=== PATIENT | male | born 1945 | race Caucasian/White ===

== ENCOUNTER → 2021-07-07 | Outpatient (CLI) | payer MEDICARE ==
[2021-07-07 13:04] VITALS: BP 129/68; PULSE 63; RESP 18; TEMP 97.4
--- NOTE | 2021-07-07 13:24 | P.PAINCN ---
History of Present Illness - Reason for Consult Consult date: 07/07/21 - History of Present Illness This is a 76-year-old patient referred by Dr. Rossi with a chief complaint of chronic pain in the neck. He also has low back pain which he says is worse than his neck pain. She was neck the pain is located mostly in his neck with some radiation into the upper extremities. He describes weakness in bilateral upper extremities right worse than left. He attributes this mostly to pain. She was back he describes pain in his low back with radiation to the posterior aspects of both lower extremities. His weakness in the lower extremities as well. Pain is made better with sitting and laying down and made worse with any sort of walking. Currently a 7 out of 10, at its worst a 10 out of 10, at best 4 out of 10. Has had injections with Dr Brandt, most recent injection (LESI) was in November which gave him 90% relief for a month. He has had radiofrequency ablation in the low lumbar spine in the past which he says is the most helpful. He said the first time he had a was very helpful however the second time it was not as helpful. Currently doing physical therapy. Uses walker for ambulation. Has tried gabapentin but had to discontinue because it made him too dizzy. Uses CBD oil which is helpful for his dizziness. Patient denies adverse drug effects from medications. Patient also denies new-onset weakness, bowel/bladder incontinence, or any other signs or symptoms of cauda equina syndrome. There are no signs of acute intoxication, and no indications of medication diversion or overuse. In addition to above, 13-point review of systems is also negative for chest pain, shortness of breath, changes in vision, changes in hearing, new onset weakness, abdominal pain, diarrhea, extreme fatigue, malaise, fever, skin changes, homicidal or suicidal ideation, or bowel or bladder incontinence. Physical exam: Vital Signs: Reviewed in EMR GENERAL: Mild distress, sitting in his walker. PSYCH: Mood and affect is appropriate. Awake, alert, and oriented SKIN: Skin color, texture, turgor normal, no rashes or lesions HEENT: Normocephalic, atraumatic. EOM intact CV: No pedal edema RESP: Respirations are unlabored, no audible wheezing GI: Abdomen non-distended MUSCULOSKELETAL: Bilateral upper and lower extremity strength is normal and symmetric. Cervical and lumbar muscle atrophy. Neck: pain to palpation over the cervical paraspinous muscles. Spurling negative, Axial Loading Test positive, Li's sign negative. No pain with neck flexion, extension, or lateral flexion. No obvious deformity or signs of trauma. decreased cervical lordosis. and normal cervical spine range of motion Lumbar spine: Straight leg raising in the sitting position is negative for radicular pain. pain to palpation over the lumbar spine and paraspinous muscles. pain with facet loading and back extension/rotation. Decreased lumbar extension due to pain. Extremities: Peripheral joint ROM is limited and painful without obvious instability or laxity in all four extremities. No edema or skin discolorations noted. Gait: Gait is very slow and antalgic NEUR: Bilateral upper and lower extremity coordination and muscle stretch reflexes are physiologic and symmetric. Negative clonus. No loss of sensation is noted. Cranial nerves are grossly intact. Imaging: Cervical MRI 01/2021 Multilevel degenerative changes in the spine with multilevel high-grade neural foraminal narrowing with no spinal canal stenosis. The stenosis is worse at C4- C5 and C6-C7. Assessment: 1. Lumbar spondylosis 2. Cervical spondylosis 3. Plan: - We will repeat his bilateral L4-L5 and L5-S1 radiofrequency ablation as he has had in the past. If these are not successful to consider lumbar epidural steroid injections at L5-S1. In regards to his cervical spine he could benefit from a C7-T1 epidural steroid injection but at this time his major concern is his low back. I spent 50 minutes on patient care today. The time was used to review medical records including relevant urine studies and prescription history (MAPs), review of the available imaging, evaluation and examination the patient, coordination of care at the medical staff and if applicable referring physicians, as well as creation of the medical record. Past Medical History Past Medical History: Diabetes Mellitus, GERD/Reflux, Hypertension, Liver Disease, Osteoarthritis (OA) Additional Past Medical History / Comment(s): CHRONIC GENERALIZED PAIN. "visual scitoma", fatty liver disease, urination with urgency History of Any Multi-Drug Resistant Organisms: None Reported Past Surgical History: Orthopedic Surgery, Tonsillectomy Additional Past Surgical History / Comment(s): LEFT KNEE arthroscopy. HEMORROIDECTOMY. EPIDURAL STEROID INJECTION. cory cataract surgery Past Anesthesia/Blood Transfusion Reactions: No Reported Reaction Past Psychological History: Anxiety Smoking Status: Former smoker Past Alcohol Use History: Rare Additional Past Alcohol Use History / Comment(s): smoked in college, quit 1970 Past Drug Use History: None Reported Additional Drug Use History / Comment(s): CBD gummies - Past Family History Mother Family Medical History: No Reported History Medications and Allergies Home Medications Medication Instructions Recorded Confirmed Type Aspirin [Adult Low Dose Aspirin EC] 81 mg PO DAILY 10/02/15 07/06/21 History Benefiber 2 tsp PO DAILY 10/02/15 07/06/21 History Citalopram Hydrobromide 40 mg PO QAM 10/02/15 07/06/21 History [Citalopram HBr] Docusate [Colace] 100 mg PO BID 10/02/15 07/06/21 History Fluticasone Nasal [place] [Flonase 1 spray NASAL DAILY PRN 10/02/15 07/06/21 History Nasal [place]] Glucosamine/Chondr Muhammad A Sod [Osteo 1 tab PO DAILY 10/02/15 07/06/21 History Bi-Flex Caplet] Ibuprofen [Motrin] 800 mg PO BID 10/02/15 07/06/21 History Multivitamins, Thera [Multivitamin] 1 tab PO DAILY 10/02/15 07/06/21 History Omeprazole [PriLOSEC] 20 mg PO QAM 10/02/15 07/06/21 History Tumeric 400 mg PO DAILY 10/02/15 07/06/21 History metFORMIN HCL [Glucophage] 1,000 mg PO BID 10/02/15 07/06/21 History Atorvastatin [Lipitor] 20 mg PO MOWEFR 07/06/21 07/06/21 History Cyanocobalamin (Vitamin B-12) 1,000 mcg PO DAILY 07/06/21 07/06/21 History [Vitamin B-12] Glimepiride [Amaryl] 2 mg PO DAILY 07/06/21 07/06/21 History Metoprolol Tartrate [Lopressor] 50 mg PO BID 07/06/21 07/06/21 History Nitroglycerin Sl Tabs [Nitrostat] 0.4 mg SUBLINGUAL Q5M PRN 07/06/21 07/06/21 History lisinopriL 30 mg PO DAILY 07/06/21 07/06/21 History Allergies Allergy/AdvReac Type Severity Reaction Status Date / Time No Known Allergies Allergy Verified 07/06/21 13:57 PQRS Measure Charge Sheet PQRS Narrative: Smoking Status Former smoker Pain Intensity [Back] 8 Hx Alcohol Use (MH) Yes Home Medications: Ambulatory Orders Aspirin [Adult Low Dose Aspirin EC] 81 mg PO DAILY 10/02/15 Benefiber 2 tsp PO DAILY 10/02/15 Citalopram Hydrobromide [Citalopram HBr] 40 mg PO QAM 10/02/15 Docusate [Colace] 100 mg PO BID 10/02/15 Fluticasone Nasal [place] [Flonase Nasal [place]] 1 spray NASAL DAILY PRN 10/02/15 Glucosamine/Chondr Muhammad A Sod [Osteo Bi-Flex Caplet] 1 tab PO DAILY 10/02/15 Ibuprofen [Motrin] 800 mg PO BID 10/02/15 Multivitamins, Thera [Multivitamin] 1 tab PO DAILY 10/02/15 Omeprazole [PriLOSEC] 20 mg PO QAM 10/02/15 Tumeric 400 mg PO DAILY 10/02/15 metFORMIN HCL [Glucophage] 1,000 mg PO BID 10/02/15 Atorvastatin [Lipitor] 20 mg PO MOWEFR 07/06/21 Cyanocobalamin (Vitamin B-12) [Vitamin B-12] 1,000 mcg PO DAILY 07/06/21 Glimepiride [Amaryl] 2 mg PO DAILY 07/06/21 Metoprolol Tartrate [Lopressor] 50 mg PO BID 07/06/21 Nitroglycerin Sl Tabs [Nitrostat] 0.4 mg SUBLINGUAL Q5M PRN 07/06/21 lisinopriL 30 mg PO DAILY 07/06/21
== END ==
LOC: PNWHC3 12:42
PROVIDERS: ATTEND Anesthesiology
DX: M47.816 Spondylosis without myelopathy or radiculopathy, lumbar region (principal); M47.812 Spondylosis without myelopathy or radiculopathy, cervical region; E11.9 Type 2 diabetes mellitus without complications; I10 Essential (primary) hypertension; M19.90 Unspecified osteoarthritis, unspecified site; F41.9 Anxiety disorder, unspecified; Z87.891 Personal history of nicotine dependence; K21.9 Gastro-esophageal reflux disease without esophagitis; Z79.84 Long term (current) use of oral hypoglycemic drugs; Z79.899 Other long term (current) drug therapy
CPT/HCPCS: 99211

== ENCOUNTER 2021-08-20 10:43 | Day surgery (SDC) | payer MEDICARE ==
[2021-08-18 16:08] VITALS: BMI 38.9
[2021-08-20 11:27] VITALS: TEMP 97.1
[2021-08-20 11:29] LABS: Glucose,Whole Blood 128 mg/dL (75-99)
[2021-08-20] MEDS ORDERED: LACTATED RINGERS 1,000 ML IV ONE (11:33)
[2021-08-20] MEDS ORDERED: MIDAZOLAM 2 MG/2 ML VIAL ONE (11:54)
[2021-08-20] MEDS ORDERED: ROPIVACAINE 5MG/ML 20ML VIAL ONE (11:54)
[2021-08-20] MEDS ORDERED: fentaNYL (PF) 50 MCG/ML 2 ML AMP ONE (11:54)
[2021-08-20] MEDS ORDERED: TRIAMCINOLONE ACETONIDE 40 MG/ML 1 ML VIAL ONE (11:54)
--- NOTE | 2021-08-20 12:35 | P.PCN ---
Date of Procedure: 08/20/21 Procedure(s) Performed: PREOPERATIVE DIAGNOSIS: 1-Lumbar Spondylosis with Facet Arthropathy without myelopathy. POSTOPERATIVE DIAGNOSIS: 1- Lumbar Spondylosis with Facet Arthropathy without myelopathy. PROCEDURES : Bilateral Radiofrequency thermocoagulation, L3 , L4 , and L5 medial branch, with fluoroscopic guidance (fluoroscopy images available in the radiology department) ( to denervate the facet joint at Bilateral L4-5 ,and L5-S1 levels ). ANESTHESIA: Monitered anesthesia care. EBL: Minimal PROCEDURE INDICATION: The patient with low back pain secondary to lumbar facet arthropathy who had more than 50% relief of her pain with previous diagnostic l umbar medial branch block with bupivacaine. PROCEDURE DESCRIPTION / TECHNIQUE: The patient was seen and identified in the preoperative area. Risks, benefits, complications, including but not limited to risk of infection ,bleeding , allergic reactions to the medications and no complete pain releife , and alternatives were discussed with the patient, the patient agreed to proceed with the procedure and signed the consent. IV was started. Vital signs remained stable throughout the procedure. Patient was taken to the OR and time out was completed. The patient was placed in the prone position on the procedure table. The lumber area was prepped and draped in the usual sterile fashion. . Vital signs were closely monitored during the procedure .IV sedation was used during the procedure to decrease patients anxiety. Using AP and then oblique fluoroscopy, the ``eye of the Bruce dog corresponding to the connection between the superior and transverse articular processes of right L3, L4, and L5 were identified, marked, and localized with 1% lidocaine. Subsequently, a 18 [id number] (VENUM )radiofrequency cannula with a 10-mm active tip was advanced guided by fluoroscopy to each of the``eyes of the Bruce dog at right L3, L4, and L5. Each site then underwent sensory testing at 50 Hz and 0 to 1 volt and motor testing at 2.5 Hz and 0 to 3 volt with local stimulation, but no radicular symptoms down the legs. Thereafter each sites underwent radiofrequency thermocoagulation at 80 degrees celsius for 90 seconds after injecting 0.5 ml of PF Ropivacaine 1ml, then after the th ermocoagulation done , 1 ml of the block solution containing Kenalog 20 mg and 3 ml of Ropivacaine 0.5% was injected at the right L3 , L4 , and L5 , levels after negative aspiration of CSF and blood and with no paresthesias. Cannulas were retracted while injecting lidocaine 1% until the needle is out. The same procedure was repeated at the level of Left L3, L4, and L5 levels. At the end of the procedure, the skin was cleansed and bandages were applied. COMPLICATIONS: No acute complications. DISPOSITION / PLANS: The patient was placed in a supine position and transferred to the recovery area in a stable condition for observation and was discharged from the recovery room after meeting discharge criteria. Home discharge instructions given to the patient by the staff. The patient was r eexamined prior to discharge. The patient will schedule a follow up in the clinic in 2-4 weeks.
[2021-08-20] MEDS ORDERED: IV FLUID CONTINUATION 600 ML IV ONE (12:40)
[2021-08-20 12:43] VITALS: RESP 16
[2021-08-20 12:57] VITALS: BP 149/74; PULSE 72
[2021-08-20] MEDS ORDERED: LACTATED RINGERS 1,000 ML IV SCH (13:03)
--- NOTE | 2021-08-20 13:30 | FL ---
Fluoroscopy HISTORY: Pain 38 seconds fluoroscopy time supplied to the referring clinician. 6 intraoperative C-arm images docum ent the procedure. See dictated report from anesthesia.
== END 2021-08-20 13:23 | disposition home or self-care (01) ==
LOC: ORPAIN 10:43
PROVIDERS: ATTEND Specialist
DX: M47.816 Spondylosis without myelopathy or radiculopathy, lumbar region (principal)
CPT/HCPCS: 64635; 64636; J2250; J3301; J3010; J2795

== ENCOUNTER → 2021-09-08 | Outpatient (CLI) | payer MEDICARE ==
[2021-09-08 13:57] VITALS: BP 153/80; PULSE 58; RESP 18; TEMP 98.4
--- NOTE | 2021-09-08 14:09 | P.PN ---
Subjective Progress Note Date: 09/08/21 This is follow visit for this 76 years old male with a chronic history of severe low back pain and neck pain, diagnosed with lumbar spondylosis, lumbar facet arthropathy and lumbar degenerative disc disease, recently we have done RFA of the medial branch lumbar area, she reported that his low back pain improved but he continued to have severe pain in the buttock area bilaterally is constant and increases with activity preventing him from doing any activity he has hard time ambulating, he is using cane to ambulate Objective - Vital Signs Vital signs: Vital Signs Temp 98.4 F 09/08/21 13:44 Pulse 58 L 09/08/21 13:44 Resp 18 09/08/21 13:44 BP 153/80 09/08/21 13:44 Pulse Ox - Exam Physical Examinations : -Constitutiona : Cooperative , not in acute distress . -HEENT : nech : supple , no Lymphadenopathy , normal thyroid size . : eyes : no ptosis , no icterus, no photophobia . - neurologic : Cranial nerve II to XII intact , no focal neurological deffecit . -psychatric : alert , oriented X 3 , appropriate affect , intact judgment and insight . -Lymphatic : no Lymphadenopathy . - musculoskeltal : . Lumber spine moter stegnth lower extremities ,thigh and legs 4/5 Right side , 4/5 Left side deep tendon reflexes : normal Knee Jerk , normal ankle Jerk lumber facet Loading Test =positive Right , positive Left Range of motion of the lumbar spine Flexion 30 degrees, extension 10 degree. Sever tenderness over the Sacroiliac joint on the Right , and Left sides Gaenslen test= positive right ,and positive left . Seated flexion test= positive right ,and positive Left . Distraction test= positive bilaterally Sacroiliac compression test= positive bilaterally. sever.Tenderness over the iliolumbar ligaments bilaterally Assessment and Plan Plan: Assessment and plan=1-lumbar spondylosis with lumbar facet arthropathy 2-Lumbar degenerative disc disease. 3-bilateral sacroiliitis. 4-bilateral iliolumbar ligament neuralgia. he could benefit from bilateral sacroiliac joint steroid injections under fluoroscopy guidance, and the same and into bilateral iliolumbar ligaments steroid injection. Seizure risk and benefits and alternatives discussed with the patient he agreed to the preceding. - PQRS measures = - Patient's medications are documented in the chart. -Tobacco use is negative and counseling.Given. -Patient's has not received pneumococcal vaccine. -Advanced care planning discussed, patient not eligible. -Opiate contract not signed. -Pain positive and follow-up visit/procedure is scheduled. -Patient's blood pressure measured [153/80 ] , and documented in the record ,and patient will follow up with the primary care. -Patient's weight was measured and body mass index [ ] above the normal limits and counseling was done. and patient instructed to follow-up with the primary care physician. -Patient was not identified as an unhealthy alcohol user Time with Patient: Less than 30
== END ==
LOC: PNWHC3 13:18
PROVIDERS: ATTEND Specialist
DX: M47.816 Spondylosis without myelopathy or radiculopathy, lumbar region (principal); M51.36 Other intervertebral disc degeneration, lumbar region; M46.1 Sacroiliitis, not elsewhere classified; G58.8 Other specified mononeuropathies; Z87.891 Personal history of nicotine dependence
CPT/HCPCS: 99211

== ENCOUNTER 2021-10-12 12:04 | Day surgery (SDC) | payer MEDICARE ==
[2021-10-08 11:40] VITALS: BMI 38.9
[~2021-10-12 12:04] MED LIST: LACTATED RINGERS 1,000 ML IV SCH
[2021-10-12 13:16] VITALS: RESP 16; TEMP 97
[2021-10-12] MEDS ORDERED: LACTATED RINGERS 1,000 ML IV ONE ×2 (13:34)
[2021-10-12 13:35] LABS: Glucose,Whole Blood 122 mg/dL (75-99)
[2021-10-12] MEDS ORDERED: MIDAZOLAM 2 MG/2 ML VIAL ONE (13:36)
[2021-10-12] MEDS ORDERED: fentaNYL (PF) 50 MCG/ML 2 ML AMP ONE (13:36)
[2021-10-12] MEDS ORDERED: ROPIVACAINE 5MG/ML 20ML VIAL ONE (13:36)
[2021-10-12] MEDS ORDERED: TRIAMCINOLONE ACETONIDE 40 MG/ML 1 ML VIAL ONE (13:36)
--- NOTE | 2021-10-12 14:01 | P.PCN ---
Date of Procedure: 10/12/21 Surgeon: Ebenezer Ely Pathology: none sent Condition: stable Disposition: PACU Description of Procedure: Preoperative diagnoses= bilateral sacroiliac joint dysfunction , sacroiliitis a nd bilateral iliolumbar ligament pain Postoperative diagnoses= same as preoperative diagnosis. Procedure= bilateral sacroiliac joint steroid injection under fluoroscopic guidance Bilateral iliolumbar ligament injection under fluoroscopic guidance. Anesthesia= local anesthesia with lidocaine 1% and IV moderate conscious sedation with fentanyl and Versed Estimated blood loss=minimal. Procedure indication= the patient had a history of severe chronic low back pain, diagnosed with sacroiliitis and lumbar sacral facet arthropathy unresponsive to conservative treatment. Procedure description= the patient was seen and identified in the preoperative holding area, risks and benefits and alternative of the procedure and possible complications discussed with the patient, patient signed the consent. an IV was started, and vital signs were monitored and were stable throughout the procedure, patient was placed in the prone position or table and the lumbosacral area was prepped and draped with a sterile fashion, vital signs were closely monitored during the procedure.The sacroiliac joint was identified on the AP view of fluoroscopy then the C-arm was tilted to the contralateral oblique position to superimpose the anterior and posterior joint lines on each other and to have a unified joint line with the target point at the inferior one third of this line. I used 22-gauge 3-1/2 inch Quincke spinal needle for this procedure and after getting into the sacroiliac joint I injected 20 mg of Kenalog +2 MLS of Ropivacaine 0.5%. Patient tolerated the procedure well without any complication, the contralateral sacroiliac joint was done in the same manner using 20 mg of Kenalog also. I then turned my attention into doing the iliolumbar ligament injection on the right side by localizing the skin with 1% lidocaine and using 3-1/2 inch 22- gauge Quincke needle to contact the tip of the transverse process of L5 the right side and then the needle walked off the bone for a few millimeters I then injected 4 MLS of ropivacaine 0.5%. The same procedure was repeated in the same manner on the left side. T he patient returned to supine position after the back was cleaned and a Band-Aid applied, the patient transported to recovery room in stable condition and he was monitored for 30 minutes before she was discharged home in stable condition . patient will follow up with the pain clinic in a few weeks. A copy of the needle placement was saved to the C-arm machine.
[2021-10-12] MEDS ORDERED: IV FLUID CONTINUATION 1,000 ML IV ONE (14:02)
[2021-10-12 14:29] VITALS: BP 165/73; PULSE 67
--- NOTE | 2021-10-12 14:32 | FL ---
Fluoroscopy HISTORY: Pain 25 seconds fluoroscopy time supplied to the referring clinician. 4 intraoperative C-arm images docum ent the procedure. See dictated report from anesthesia.
== END 2021-10-12 14:39 | disposition home or self-care (01) ==
LOC: ORPAIN 12:04
PROVIDERS: ATTEND Anesthesiology
DX: G89.29 Other chronic pain (principal); M46.1 Sacroiliitis, not elsewhere classified; M54.59 Other low back pain; E11.9 Type 2 diabetes mellitus without complications; M19.90 Unspecified osteoarthritis, unspecified site
CPT/HCPCS: 20550; J2250; J3301; J3010; J2795; G0260; 99152